=== PATIENT | male | born 1995 | race Two or more races ===

== ENCOUNTER 2019-10-23 12:23 | Day surgery (SDC) | payer OTHER ==
[~2019-10-23 12:23] MED LIST: VALSARTAN-HCTZ1 EAC4 PO
[2019-10-23] MEDS ORDERED: PERCOCET 5-3251 EACH PO (13:26)
[2019-10-23] MEDS ORDERED: BACTRIM DS TAB1 EACH PO (14:17)
== END 2019-10-23 17:10 | disposition home or self-care (01) ==
LOC: CIR.AMB 12:23 → ADM 13:30 → CIR.AMB 13:30
PROVIDERS: ATTEND Surgery
DX: L05.01 Pilonidal cyst with abscess (principal); Z20.828 Contact with and (suspected) exposure to other viral communicable diseases